=== PATIENT | male | born 1960 | race African-American/Black ===

== ENCOUNTER 2017-04-15 12:27 | Emergency (ER) | payer MEDICAID ==
[~2017-04-15 12:27] MED LIST: GABA-827 PO
[2017-04-15] MEDS ORDERED: IBUPROFEN 200 MG TABLET PO ONE (13:00)
[2017-04-15] MEDS ORDERED: KETOROLAC 30 MG/1 ML ONE (13:08)
[2017-04-15] MEDS ORDERED: KETOROLAC 30 MG/1 ML IM ONE (13:30)
[2017-04-15] MEDS ORDERED: GABAPENTIN 300 MG CAPSULE PO ONE (13:30)
== END 2017-04-15 13:25 | disposition left against medical advice (07) ==
LOC: ED 13:19
DX: R51 Headache (principal); F17.200 Nicotine dependence, unspecified, uncomplicated
CPT/HCPCS: 99281